=== PATIENT | male | born 1950 | race African-American/Black ===

== ENCOUNTER → 2017-06-02 | Outpatient (CLI) | payer OTHER ==
[~2017-06-02] MED LIST: IOPAMIDOL 370 MG/ML 200 ML INFUS..BTL INJ ONE; SODIUM CHLORIDE 0.9% 50ML 50 ML ONE
[2017-06-02 08:45] LABS: BLOOD UREA NITROGEN 11 mg/dL (7-26); BUN/CREATININE RATIO 13 (6-25); CREATININE, SERUM 0.82 mg/dL (0.72-1.25); EST GLOMERULAR FILTRATION RATE > 60 ML/MIN (60-)
--- NOTE | 2017-06-02 09:31 | Diagnostic Imaging Report ---
PROCEDURE: CT ABDOMEN AND PELVIS WITH CONTRAST TECHNIQUE: The abdomen and pelvis were scanned utilizing a multidetector helical scanner from the diaphragm to the lesser trochanter after the IV administration of 100 cc of Isovue 370 and the oral administration of water. Coronal and sagittal multiplanar reformations were obtained. COMPARISON: None. INDICATIONS: ABDOMEN PAIN FINDINGS: LOWER THORAX: Left lower lobe subsegmental atelectasis. Otherwise unremarkable. HEPATOBILIARY: No focal hepatic lesion or intrahepatic biliary ductal dilatation. Gallbladder is unremarkable. SPLEEN: No splenomegaly. PANCREAS: No focal masses or ductal dilatation. ADRENALS: No adrenal nodules. KIDNEYS/URETERS: Subcentimeter hypoattenuating lesions in the upper and lower pole of the left kidney are too small to further characterize the likely to represent small cysts. 1.3 cm hypoattenuating lesion in the lower pole the left kidney has average internal attenuation 15-20 Hounsfield units, compatible with a cyst. Thin internal septations are noted on series 301, image 61. No hydronephrosis, calculi, or additional renal mass lesion. PELVIC ORGANS/BLADDER: The urinary bladder is poorly distended but otherwise unremarkable. The prostate is enlarged, measuring 5.4 cm transversely. PERITONEUM / RETROPERITONEUM: No ascites. No pneumoperitoneum. LYMPH NODES: No pelvic sidewall, retroperitoneal, or mesenteric lymphadenopathy. VESSELS: There is atherosclerotic calcification of the abdominal aorta, major branch vessels, and iliac arterial systems, which are moderately tortuous. No aneurysmal dilatation. The portal vein, splenic vein, and central superior mesenteric vein are patent. GI TRACT: The large bowel is notable for scattered diverticula along the descending and sigmoid colon, without wall thickening or inflammatory change. The transverse colon is collapsed and poorly evaluated. The appendix is normal. Postsurgical changes at the gastroesophageal junction probably related to fundoplication. There is no small bowel dilatation to suggest obstruction. BONES AND SOFT TISSUES: No focal soft tissue abnormalities. Small fat containing umbilical hernia. Subtle diffusely sclerotic appearance of the L2 vertebral body (see sagittal image 65). Multilevel degenerative disc disease and degenerative facet arthropathy of the lumbar spine. IMPRESSION: No acute intra-abdominal or pelvic CT abnormalities. Large bowel diverticulosis without evidence of diverticulitis. Subtle diffuse sclerotic appearance of the L2 vertebral body may reflect stress-related changes. However, in the setting of prostatomegaly, prostate cancer with osseous metastasis is an additional consideration. Correlation with serum PSA and nuclear medicine bone scan is suggested. Minimally complex, Bosniak category 2F left renal cyst. Followup CT or MRI of the abdomen with and without contrast (renal mass protocol) in 6-12 months is suggested to assess for stability. Dictated by: Aaron Shane M.D. on 06/02/2017 at 9:40 Electronically approved by: Aaron Shane M.D. on 06/02/2017 at 9:40
== END ==
LOC: CT 07:38
PROVIDERS: ATTEND Emergency Medicine
DX: R10.9 Unspecified abdominal pain (principal)
CPT/HCPCS: 36415; 74177; 82565; 84520; Q9967

== ENCOUNTER → 2021-03-06 | Outpatient (CLI) | payer MEDICARE ==
[2021-03-06 11:35] LABS: CREATININE, SERUM 0.86 mg/dL (0.72-1.25)
== END ==
LOC: CT 10:50
PROVIDERS: ATTEND Emergency Medicine
DX: R10.9 Unspecified abdominal pain (principal)
CPT/HCPCS: 36415; 74177; 82565; 84520; Q9967